=== PATIENT | female | born 1980 | race Caucasian/White ===

== ENCOUNTER 2019-09-30 16:00 | Emergency (ER) | payer MEDICAID, SELFPAY ==
[2019-09-30 16:01] VITALS: BP 136/81; PULSE 108; RESP 18; TEMP 39.5; O2SAT 97
--- NOTE | 2019-09-30 16:12 | EKG12_ITS ---
Test Reason : Blood Pressure : / mmHG Vent. Rate : 114 BPM Atrial Rate : 114 BPM P-R Int : 128 ms QRS Dur : 068 ms QT Int : 318 ms P-R-T Axes : 038 045 009 degrees QTc Int : 438 ms Sinus tachycardia Nonspecific ST and T wave abnormality Abnormal ECG Confirmed by CLAUDIO NARVAEZ, NILO ([id number]), newspaper editor CARLITOS QUINONES ([id number]) on 10/02/2019 1:33:40 PM Referred By: LISSETT Confirmed By:NILO SNYDER MD
[2019-09-30] MEDS: Acetaminophen 500 MG Tablet 1000 MG PO (16:32)
[2019-09-30] MEDS: Ondansetron 4 MG/2 ML Vial IV (16:33)
[2019-09-30] MEDS: 0.9% Normal Saline 1,000 ML 1000 ML IV (16:34)
--- NOTE | 2019-09-30 16:35 | ED.DCSUM_ITS ---
History of Present Illness Chief Complaint: Fever Informant: Patient Onset: Yesterday Context: Gradual Onset Timing: Continuous Current Severity: Moderate Maximum Severity: Severe Narrative: The patient is an otherwise healthy 39-year-old female with history of Arnold- Chiari that presents to the emergency department fever and myalgias. Patient states that it began yesterday. She states that she went to work and just had diffuse body pains. She states mostly in her shoulders, arms, and legs. She does feel generally uncomfortable. She called squad because she felt like she cannot move. She was found to have a fever of 104. She denies any sick contacts. She has no history of immunosuppression. She has had a scant cough and generalized malaise. Prior similar symptoms: No Recent Illness/Hospitalization: No Past Medical History - Allergies and Home Meds Allergies/Adverse Reactions: Allergies meperidine [From Demerol] Allergy (Verified 09/30/19 16:01) [place] Primary Care Physician: Care Physician,No Primary [Primary Care Provider] - Prior records reviewed: Yes Past Medical History: - - Arnold-Chiari malformation Surgical History: noncontributory Review of Systems General: Reports: Fever, Malaise Eyes: Denies: Visual changes - bilaterally, Diplopia ENT: Denies: Rhinorrhea, Sore throat Cardiovascular: Denies: Chest pain, Palpitations Respiratory: Denies: Dyspnea, Cough, Dyspnea on exertion Gastrointestinal: Denies: Abdominal pain, Nausea, Vomiting, Diarrhea, Melena, Hematochezia Genitourinary: Denies: Dysuria, Hematuria, Frequency Musculoskeletal: Reports: Myalgias, Arthralgias Skin: Denies: Rash, Wounds Neurological: Denies: Headache, Weakness, Numbness Physical Exam Vital Signs/Narrative: Vital Signs Temp Pulse Resp BP Pulse Ox 09/30/19 16:01 103.1 F H 108 H 18 136/81 H 97 Inital Vital Signs reviewed: Yes General: Well nourished, Well developed, No Acute Distress Head: Normocephalic, Atraumatic Eyes: Perrl, EOMI ENT: Moist mucous membranes, No rhinorrhea Neck: Supple, Nontender Cardiovascular: Regular rate, Regular rhythm, No murmurs Respiratory: No distress, CTA bilaterally, Chest nontender Abdomen: Soft, Nontender, Nondistended, Normal bowel sounds Back: Nontender, Normal Inspection Extremities: Nontender, No edema Skin: Normal color, No rash Neurological: Alert, Oriented x3, Cranial nerves II-XII grossly intact, Normal Strength, Normal Sensation Psychological: Normal affect, Normal Mood Diagnostic/Tx/Re-eval Abnormal Lab Results 09/30/19 09/30/19 16:25 16:25 WBC 6.3 RBC 4.73 Hgb 13.3 Hct 40.2 MCV 85.0 MCH 28.1 MCHC 33.1 RDW Std Deviation 40.2 RDW Coeff of Sadiq 13.1 Plt Count 278 MPV 9.5 Immature Gran % (Auto) 1.300 H Neut % (Auto) 82.9 H Lymph % (Auto) 6.1 L [place] % (Auto) 8.6 Eos % (Auto) 0.5 Baso % (Auto) 0.6 Absolute Neuts (auto) 5.2 Absolute Lymphs (auto) 0.38 L Nucleated RBC % 0 Differential Comment SCANNED Sodium 135 L Potassium 4.3 Chloride 104 Carbon Dioxide 24.0 Anion Gap 7 BUN 7 Creatinine 1.04 H Estim Creat Clear Calc 119.23 Est GFR (MDRD) Af Amer 75 Est GFR (MDRD) Non-Af 62 BUN/Creatinine Ratio 6.7 L Glucose 103 Calcium 9.5 Total Bilirubin 0.30 AST 97 H ALT 59 H Alkaline Phosphatase 65 Total Protein 7.9 Albumin 3.5 Globulin 4.4 H Albumin/Globulin Ratio 0.8 L Clinical Impression(s) from Imaging Studies Chest X-Ray 09/30/19 16:40 IMPRESSION: Bibasilar atelectasis. Electronically Signed: Bernardo Luu MD at 17:03 EST Tel , Service support , - Medical Decision Making The patient presents with fever, malaise, myalgias. Her lung sounds are clear. Her symptoms do seem consistent with influenza. IV was established. Her fever was treated and she was feeling improved. She was given fluids. X-ray does not show any focal infiltrative process. Her rapid flu was negative, but based on the sensitivity I still feel that this is likely influenza. Given her significant illness, I do feel that she would benefit from Tamiflu and she is agreeable with this plan of care. Her heart rate has improved. Her fever has resolved. She has no evidence of pneumonia. Her lab work is otherwise unremarkable. At this point I do feel patient safe for outpatient therapy and she is comfortable with this plan of care. She will be discharged home. Impression 1. Influenza ED Disposition - Plan for ED Patient: Instructions: INFLUENZA (Adult) Prescriptions: Oseltamivir Phosphate [Tamiflu] 75 mg PO BID #10 cap Prescription Printed Benzonatate [Tessalon Perle] 200 mg PO TID PRN PRN #20 cap PRN Reason: Cough Prescription Printed Referrals: Care Physician,No Primary [Primary Care Provider] -
[2019-09-30 16:40] LABS: Absolute Lymphocyte Count 0.38 X10^3/uL (0.83-4.51); Absolute Neutrophil Count 5.2 X10^3/uL (2.0-7.7); Basophil# 0.04 X10^3/uL; Basophil% 0.6 % (0-1); Eosinophil# 0.03 X10^3/uL; Eosinophils% 0.5 % (0-5); Hematocrit 40.2 % (37-47); Hemoglobin 13.3 g/dL (12.0-15.0); Lymphocyte # 0.38 X10^3/ul (4.0); Lymphocyte % 6.1 % (19-41); Mean Corp Hgb Conc 33.1 g/dL (32-36); Mean Corpuscular Hgb 28.1 pg (27.0-32.0); Mean Platelet Vol. 9.5 fl (6.2-12.0); Monocyte# 0.54 X10^3/uL; Monocyte% 8.6 % (0-10); NRBC Flagged by Analyzer 0 % (0-5); Neutrophil # 5.19 X10^3/uL (2.7-7.7); Neutrophil % 82.9 % (47-70); POSITIVE DIFFERENTIAL YES; Platelet Count 278 K/mm3 (150-450); RBC Distribution Width CV 13.1 % (11.6-14.6); RBC Distribution Width SD 40.2 fl (35.1-43.9); Red Blood Count 4.73 M/mm3 (4.2-5.4); White Blood Count 6.3 K/mm3 (4.4-11.0)
--- NOTE | 2019-09-30 16:40 | RAD_ITS ---
STUDY: X-RAY CHEST REASON FOR EXAM: Female, 39 years old. FEVER AND COUGH TECHNIQUE: Frontal and lateral views of the chest. COMPARISON: None. FINDINGS: Bibasilar atelectasis. There is no demonstrated pleural abnormality. Normal size heart. Normal mediastinum and [place]. Normal visualized pulmonary arteries. Normal visualized aortic arch and descending thoracic aorta. Normal visualized thoracic spine. Normal visualized ribs, clavicles, and shoulders. Cholecystectomy clips. RAD/Chest PA and Lateral IMPRESSION: Bibasilar atelectasis. Electronically Signed: Bernardo Luu MD at 17:03 EST Tel , Service support ,
[2019-09-30 16:47] LABS: Differential Indicated SCAN CRITERIA MET
[2019-09-30 17:02] LABS: ALB/GLOB Ratio 0.8 RATIO (0.9-2.4); AST(SGOT) 97 U/L (15-37); Alanine Aminotransfer ALT/SGPT 59 U/L (13-56); Albumin, Serum 3.5 g/dL (3.2-5.0); Alkaline Phosphatase 65 U/L (45-117); Anion Gap 7 (5-15); BUN 7 mg/dL (7-18); BUN/Creat Ratio 6.7 RATIO (10-20); Calcium,Total 9.5 mg/dL (8.5-10.1); Chloride 104 mmol/L (98-107); Creatinine, Serum 1.04 mg/dL (0.55-1.02); EST Glomerular Filtration Rate 62 mL/min (>60); Est Glom Filt Rate - Afr Amer 75 mL/min (>60); Estimated Creatinine Clearance 119.23 ml/min; Globulin 4.4 g/dL (2.2-4.2); Glucose 103 mg/dL (74-106); Potassium 4.3 mmol/L (3.5-5.1); Protein, Total 7.9 g/dL (6.4-8.2); Sodium Level 135 mmol/L (136-145)
[2019-09-30 17:04] VITALS: BP 125/84; PULSE 110; RESP 20; TEMP 38.3; O2SAT 93
[2019-09-30 17:18] LABS: Differential Comment SCANNED
[2019-09-30] MEDS: 0.9% Normal Saline 1,000 ML 999 ML IV (17:50)
[2019-09-30] MEDS: Oseltamivir Phosphate 75 MG Capsule PO (17:53)
[2019-09-30 18:44] VITALS: TEMP 37.7
== END 2019-09-30 18:45 | disposition home or self-care (01) ==
PROVIDERS: Emergency Provider Emergency Medicine
DX: J11.1 Influenza due to unidentified influenza virus with other respiratory manifestations (principal)
CPT/HCPCS: 71046; 80053; 85025; 87804; 93005; 96361; 96374; 99285; J7030; A4216; J2405